=== PATIENT | male | born 1945 | race Caucasian/White ===

== ENCOUNTER 2022-07-04 09:01 | Day surgery (SDC) | payer MEDICARE ==
[2022-07-04] MEDS ORDERED: LIDOCAINE HCL 2% 100 MG/5 ML IJ ONE (09:02)
[2022-07-04] MEDS ORDERED: Depo-Medrol 40 MG/ML IM ONE (09:02)
[2022-07-04] MEDS ORDERED: DIPRIVAN 200 MG/20 ML IV ONE (11:49)
--- NOTE | 2022-07-04 13:00 | XRAY ---
Indication: Bilateral L4-S1 MBB. Intraoperative fluoroscopy provided for 15 seconds. Single digital spot image submitted for interpretation demonstrates posterior needle tips projecting over the expected left and right L4-S1 nerve roots. Correlate with intraoperative findings/report.
--- NOTE | 2022-07-04 13:04 | XRAY ---
15 seconds of fluoroscopy was used in surgery for a bilateral L4-S1 MBB.
[2022-07-04] MEDS ORDERED: Lactated Ringers 1,000 ML IV ONE (15:03)
== END 2022-07-04 12:20 | disposition home or self-care (01) ==
LOC: SDC-PAIN 09:01
PROVIDERS: ATTEND Psychiatry & Neurology Pain Medicine
DX: M47.816 Spondylosis without myelopathy or radiculopathy, lumbar region (principal); R73.03 Prediabetes; Z79.899 Other long term (current) drug therapy
CPT/HCPCS: 64493; 64494; 72020; 77002; 82947; J1030; J2704

== ENCOUNTER 2022-08-01 13:05 | Day surgery (SDC) | payer MEDICARE ==
[2022-08-01] MEDS ORDERED: Depo-Medrol 40 MG/ML IM ONE (13:06)
[2022-08-01] MEDS ORDERED: BUPIVACAINE 0.5% VIAL IJ ONE (13:06)
[2022-08-01] MEDS ORDERED: DIPRIVAN 200 MG/20 ML IV ONE (14:05)
[2022-08-01] MEDS ORDERED: Lactated Ringers 1,000 ML IV ONE (14:49)
--- NOTE | 2022-08-01 18:12 | XRAY ---
Indication: Bilateral L4-S1 MBB. Intraoperative fluoroscopy provided for 6 seconds. Single digital spot image submitted for interpretation demonstrates posterior needle tips projecting over the expected left and right L4-S1 nerve roots. Correlate with intraoperative findings/report.
--- NOTE | 2022-08-01 19:01 | XRAY ---
6 seconds of fluoroscopy was used in surgery for a bilateral L4-S1 MBB.
== END 2022-08-01 14:30 | disposition home or self-care (01) ==
LOC: SDC-PAIN 13:05
PROVIDERS: ATTEND Psychiatry & Neurology Pain Medicine
DX: M47.816 Spondylosis without myelopathy or radiculopathy, lumbar region (principal); R73.03 Prediabetes; Z79.899 Other long term (current) drug therapy
CPT/HCPCS: 64493; 64494; 72020; 77002; J1030; J2704

== ENCOUNTER 2022-08-22 07:31 | Day surgery (SDC) | payer MEDICARE ==
[2022-08-22] MEDS ORDERED: BUPIVACAINE 0.5% VIAL IJ ONE (07:32)
[2022-08-22] MEDS ORDERED: LIDOCAINE HCL 1% 50 MG/5 ML VL PF IJ ONE (07:32)
[2022-08-22] MEDS ORDERED: Depo-Medrol 40 MG/ML IM ONE (07:32)
[2022-08-22] MEDS ORDERED: DIPRIVAN 200 MG/20 ML IV ONE (09:34)
--- NOTE | 2022-08-22 10:54 | XRAY ---
Indication: Left L4-S1 RFA. Intraoperative fluoroscopy provided for 24 seconds. 3 digital spot image submitted for interpretation demonstrates posterior needle tips projecting over the expected left L4-S1 nerve roots. Correlate with intraoperative findings/report.
[2022-08-22] MEDS ORDERED: Lactated Ringers 1,000 ML IV ONE (14:45)
== END 2022-08-22 09:55 | disposition home or self-care (01) ==
LOC: SDC-PAIN 07:31
PROVIDERS: ATTEND Psychiatry & Neurology Pain Medicine
DX: M47.817 Spondylosis without myelopathy or radiculopathy, lumbosacral region (principal); R73.03 Prediabetes; Z79.899 Other long term (current) drug therapy
CPT/HCPCS: 64635; 64636; 72100; 77002; 82947; 99100; J1030; J2001; J2704

== ENCOUNTER 2022-08-29 07:44 | Day surgery (SDC) | payer MEDICARE ==
[2022-08-29] MEDS ORDERED: BUPIVACAINE 0.5% VIAL IJ ONE (07:45)
[2022-08-29] MEDS ORDERED: Depo-Medrol 40 MG/ML IM ONE (07:45)
[2022-08-29] MEDS ORDERED: LIDOCAINE HCL 1% 50 MG/5 ML VL PF IJ ONE (07:45)
[2022-08-29] MEDS ORDERED: DIPRIVAN 200 MG/20 ML IV ONE ×2 (09:44→09:45)
--- NOTE | 2022-08-29 10:50 | XRAY ---
Indication: Right L4-S1 RFA. Intraoperative fluoroscopy was provided for 24 seconds. 3 digital spot image submitted for interpretation demonstrates posterior needle tips projecting over the expected right L4-S1 nerve roots. Correlate with intraoperative findings/report.
--- NOTE | 2022-08-29 11:34 | XRAY ---
24 seconds of fluoroscopy was used in surgery for a right L4-S1 RFA.
[2022-08-29] MEDS ORDERED: Lactated Ringers 1,000 ML IV ONE (15:15)
== END 2022-08-29 10:18 | disposition home or self-care (01) ==
LOC: SDC-PAIN 07:44
PROVIDERS: ATTEND Psychiatry & Neurology Pain Medicine
DX: M47.816 Spondylosis without myelopathy or radiculopathy, lumbar region (principal); R73.03 Prediabetes
CPT/HCPCS: 64635; 64636; 72100; 77002; 82947; 99100; J1030; J2001; J2704